=== PATIENT | female | born 1995 | race Caucasian/White ===

== ENCOUNTER 2017-03-01 17:00 | Emergency (ER) | payer OTHER ==
[~2017-03-01 17:00] MED LIST: NO MEDICATIONS
[2017-03-01] MEDS ORDERED: FLONASE 0.05% N16 G1 (17:03)
== END 2017-03-01 17:56 | disposition home or self-care (01) ==
LOC: SED 17:00
DX: S70.362A Insect bite (nonvenomous), left thigh, initial encounter (principal); W57.XXXA Bitten or stung by nonvenomous insect and other nonvenomous arthropods, initial encounter; Y92.9 Unspecified place or not applicable; Z98.890 Other specified postprocedural states
CPT/HCPCS: 99282